=== PATIENT | male | born 1965 | race Caucasian/White ===

== ENCOUNTER 2025-09-20 08:16 | Day surgery (SDC) | payer OTHER ==
[~2025-09-20 08:16] MED LIST: Midazolam 1 MG/ML 2 ML SDV ONE; Propofol 200 MG/20 ML SDV ONE; fentaNYL 50 MCG/ML SDV ONE
[2025-09-20] MEDS: Lactated Ringers 1,000 ML IV SCH (09:00)
== END 2025-09-20 10:35 | disposition home or self-care (01) ==
LOC: JP.SDS 08:16
PROVIDERS: ATTEND Surgery
DX: Z12.11 Encounter for screening for malignant neoplasm of colon (principal); D12.6 Benign neoplasm of colon, unspecified; K63.5 Polyp of colon; K57.30 Diverticulosis of large intestine without perforation or abscess without bleeding; Z87.891 Personal history of nicotine dependence; Z79.899 Other long term (current) drug therapy
CPT/HCPCS: 00811-QZ; 88305; J2250; J2704; J3010; J7120